=== PATIENT | male | born 1995 | race American Indian/Alaskan Native ===

== ENCOUNTER 2019-03-14 16:45 | Emergency (ER) | payer SELFPAY ==
--- NOTE | 2019-03-14 17:10 | Event Note ---
ED Screening Note Date of service: 03/14/19 Time: 17:07 ED Screening Note: This is a 23 y.o. M. that presents to the ER with neck swelling, pain to LLE, and pruritus from a wasp sting 20-30 minutes ago. Denies difficulty swallowing No medicine. This initial assessment/diagnostic orders/clinical plan/treatment(s) is/are subject to change based on patients health status, clinical progression and re- assessment by fellow clinical providers in the ED. Further treatment and workup at subsequent clinical providers discretion. Patient/guardian urged not to elope from the ED as their condition may be serious if not clinically assessed and managed. Initial orders include: XR neck soft tissue
[2019-03-14] MEDS ORDERED: PEPCID IV ONE (17:56)
[2019-03-14] MEDS ORDERED: SOLU-Medrol IV ONE (17:56)
[2019-03-14] MEDS ORDERED: BENADRYL IV ONE (17:56)
--- NOTE | 2019-03-14 17:57 | XRay Report ---
NECK SOFT TISSUE 2 VIEWS INDICATION / CLINICAL INFORMATION: right sided swelling. COMPARISON: None available. FINDINGS: Pretracheal soft tissues appear swollen on the lateral projection. There is no significant abnormalit y of the cervical spine. No prevertebral soft tissue thickening is present. No embedded radiopaque fo reign body or subcutaneous emphysema is seen. Impression: Nonspecific thickening of pretracheal soft tissues. Consider further evaluation with ultr asound or contrast-enhanced CT. Signer Name: Carmine Lopez MD Signed: 03/14/2019 5:53 PM Workstation Name: [id number]
[2019-03-14] MEDS ORDERED: ADRENALINE P/F SUB-Q ONE (18:45)
--- NOTE | 2019-03-14 19:31 | Emergency Department Report ---
ED Allergic Reaction HPI - General Chief complaint: Allergic Reaction Stated complaint: ALLERGIC REACTION/ WASP Time Seen by Provider: 03/14/19 17:07 Source: patient Mode of arrival: Ambulatory Limitations: No Limitations - History of Present Illness Initial Comments: Patient is a 23-year-old male who presents to the emergency room after being stung by a wasp or yellow jacket that occurred 1 hour prior to arrival. He states he was stung on his left knee and left ankle. He states after being stung he began experiencing swelling and fullness of his neck. He has never been stung before. He denies any shortness of breath, difficulty breathing, difficulty swallowing, sore throat, sensation of throat closing, rash. He states he does feel generalized itchiness. denies any past medical history or allergies to medications. - Related Data Previous Rx's Medication Instructions Recorded Last Taken Type EPINEPHrine [Epipen] 0.3 mg IJ ONCE PRN #1 auto.injct 03/14/19 Unknown Rx Allergies Allergy/AdvReac Type Severity Reaction Status Date / Time wasp Allergy Rash Uncoded 03/14/19 16:50 ED Review of Systems ROS: Stated complaint: ALLERGIC REACTION/ WASP Other details as noted in HPI Comment: All other systems reviewed and negative ED Past Medical Hx - Social History Smoking Status: Never Smoker Substance Use Type: None - Medications Home Medications: Home Medications Medication Instructions Recorded Confirmed Last Taken Type EPINEPHrine [Epipen] 0.3 mg IJ ONCE PRN #1 auto.injct 03/14/19 Unknown Rx ED Physical Exam - General Limitations: No Limitations General appearance: alert, in no apparent distress - Head Head exam: Present: atraumatic, normocephalic - Eye Eye exam: Present: normal appearance, PERRL, EOMI - ENT ENT exam: Present: normal orophraynx, mucous membranes moist, other (uvula is midline, no uvular edema, no tongue edema, no lip edema, no facial edema) - Neck Neck exam: Present: other (fullness of the lower neck present ) - Respiratory Respiratory exam: Present: normal lung sounds bilaterally. Absent: respiratory distress, wheezes, rales, rhonchi, stridor, accessory muscle use, prolonged expiratory - Cardiovascular Cardiovascular Exam: Present: regular rate, normal rhythm, normal heart sounds. Absent: systolic murmur, rubs, gallop - Neurological Exam Neurological exam: Present: alert, oriented X3 - Psychiatric Psychiatric exam: Present: normal affect, normal mood - Skin Skin exam: Present: warm, dry, intact, other (unable to visualize where sting occurred, no edema or erythema of the skin of the left knee or ankle ). Absent: rash, urticaria ED Course Vital Signs 03/14/19 03/14/19 03/14/19 17:04 21:01 21:02 Temperature 98.7 F 98.4 F Pulse Rate 129 H 88 Respiratory 18 18 18 Rate Blood Pressure 139/82 Blood Pressure 130/66 [Left] O2 Sat by Pulse 99 100 100 Oximetry ED Medical Decision Making - Medical Decision Making Patient is a 23-year-old male who presents to the emergency room after being stung by a wasp or yellow jacket that occurred 1 hour prior to arrival. He states he was stung on his left knee and left ankle. He states after being stung he began experiencing swelling and fullness of his neck. He has never been stung before. He denies any shortness of breath, difficulty breathing, difficulty swallowing, sore throat, sensation of throat closing, rash. He states he does feel generalized itchiness. denies any past medical history or allergies to medications. on initial examination: fullness of the lower neck present, otherwise normal examination. immediately had IV placed and pt and given solumedrol, benadryl, and pepcid IV. Dr. Batista, ER attending evaluated and examined pt at bedside and recommended subcutaneous epinephrine 0.3 and that if symptoms resolved pt may be discharged home. pt states he no longer has any itching and that his neck no longer feels full or tight. edema/fullness in the n mariano has significantly improved. pt has clear breath sounds bilaterally, no stridor, no difficulty tolerating secretions. pt states he feels much better and has no symptoms at all and would like to go home. pt was observed in the emergency department for 3 and a half hours and had no further reaction. pt remained stable throughout his ER visit. discussed with pt that he has a severe allergy to stings. advised pt that the second reaction is typically worse. discussed angioedema with pt. discussed epipen with pt and how to use it, advised that he would need to carry it with him at all times, and seek emergency medical care immediately after using it. pts questions answered. advised to follow up with a primary care doctor in the next 2-3 days. return to the emergency room immediately for any new or worsening symptoms or if begin experiencing any symptoms at all. - Differential Diagnosis allergic reaction, angioedema, anaphylaxis Critical care attestation.: If time is entered above; I have spent that time in minutes in the direct care of this critically ill patient, excluding procedure time. ED Disposition Clinical Impression: Allergic reaction Qualifiers: Encounter type: initial encounter Qualified Code(s): T78.40XA - Allergy, unspecified, initial encounter Angioedema Qualifiers: Encounter type: initial encounter Qualified Code(s): T78.3XXA - Angioneurotic e raúl, initial encounter Disposition: TO HOME OR SELFCARE Is pt being admited?: No Does the pt Need Aspirin: No Condition: Stable Instructions: Angioedema (ED) Additional Instructions: please carry epipen with you at all times, and seek emergency medical care immediately after using it. Follow up with a primary care doctor in the next 2-3 days. return to the emergency room immediately for any new or worsening symptoms or if begin experiencing any symptoms at all. Prescriptions: EPINEPHrine [Epipen] 0.3 mg IJ ONCE PRN #1 auto.injct PRN Reason: Anaphylaxis Referrals: BERTRAND SANDERS MD [Primary Care Provider] - 2-3 Days Time of Disposition: 20:18 Print Language: TURKISH
[2019-03-14 21:01] VITALS: BP 130/66
== END 2019-03-14 21:04 | disposition home or self-care (01) ==
LOC: ED 16:45
DX: T78.3XXA Angioneurotic edema, initial encounter (principal); Z79.899 Other long term (current) drug therapy; Z91.038 Other insect allergy status; W57.XXXA Bitten or stung by nonvenomous insect and other nonvenomous arthropods, initial encounter; Y93.89 Activity, other specified; Y92.89 Other specified places as the place of occurrence of the external cause; Y99.8 Other external cause status
CPT/HCPCS: 70360; 96372; 96374; 96375; 99283; J0171; J1200; J2930